=== PATIENT | female | born 1990 | race Caucasian/White ===

== ENCOUNTER 2020-06-02 15:55 | Inpatient (IN) | payer BC, SELFPAY ==
[2020-06-02] VITALS (24 sets, daily range): BP systolic 104–143; BP diastolic 50–88; PULSE 58–89; TEMP 36.8–37.2; O2SAT 99–100; BMI 28.5
[2020-06-02] MEDS: Lactated Ringers 1,000 ML 50 ML IV (15:55)
[2020-06-02] MEDS: Lactated Ringers 500 ML 999 ML IV (15:56)
[2020-06-02 16:21] LABS: ROM Internal Control Test YES-OK TO RESULT pt. (Internal QC); ROM Patient Test POSITIVE (Negative)
[2020-06-02 16:24] LABS: Absolute Lymphocyte Count 1.82 X10^3/uL (0.83-4.51); Absolute Neutrophil Count 5.9 X10^3/uL (2.0-7.7); Basophil# 0.02 X10^3/uL; Basophil% 0.2 % (0-1); Eosinophil# 0.12 X10^3/uL; Eosinophils% 1.4 % (0-5); Hematocrit 31.3 % (37-47); Hemoglobin 10.3 g/dL (12.0-15.0); Lymphocyte # 1.82 X10^3/ul (4.0); Lymphocyte % 21.5 % (19-41); Mean Corp Hgb Conc 32.9 g/dL (32-36); Mean Corpuscular Hgb 27.8 pg (27.0-32.0); Mean Corpuscular Volume 84.4 fL (81-99); Mean Platelet Vol. 11.2 fl (6.2-12.0); Monocyte% 7.1 % (0-10); NRBC Flagged by Analyzer 0 % (0-5); Neutrophil # 5.86 X10^3/uL (2.7-7.7); Neutrophil % 69.2 % (47-70); Platelet Count 253 K/mm3 (150-450); RBC Distribution Width CV 13.7 % (11.6-14.6); Red Blood Count 3.71 M/mm3 (4.2-5.4); White Blood Count 8.5 K/mm3 (4.4-11.0)
[2020-06-02] MEDS: Ondansetron 4 MG/2 ML Vial IV (16:43)
[2020-06-02] MEDS: fentaNYL-bupivacaine (epidural) 100 ML BAG EPIDURAL (17:26)
[2020-06-02] MEDS: Oxytocin 30 units/NS 500 ml 30 UNITS/500 ML IV.SOLN 334 UNITS IV (17:48)
--- NOTE | 2020-06-02 18:43 | PCM.OPRPT ---
Problem List (1) Active labor at term Status: Acute (2) Positive GBS test Status: Acute (3) Spontaneous rupture of amniotic membranes Status: Acute Report of Operation Date of Procedure: 06/02/20 Pre-Operative Diagnosis: Active labor, S.R.O.M clear fluid, term gestation, GBS postive Post-Operative Diagnosis: Same, live female Surgery/Procedure Performed:: Type of Anesthesia:: Epidural Vaginal Delivery Maternal Presentation: Active Labor, Spontaneous Rupture of Membranes Patient is a 29 year old at 40.0 weeks gestation that presents with contractions that started a couple of hours ago that continue to increase in frequency and pain. Stated water broke at 1400 this afternoon. Positive movement, denies any vaginal bleeding. overall uncomplicated. Patient has history of anxiety, Rh negative status and GBS positive. Amniotic Membrane Rupture Type: Spontaneous at home Rupture of Membrane time: 1400 Amniotic Fluid Description: Clear Final VIRIDIANA: 06/02/20 Gestational age: 40 Weeks and 0 Days Date of Procedure: 06/02/20 Pre-Operative Diagnosis: Term gestation, Active labor, S.R.O.M, GBS positive Post-Operative Diagnosis: same, live female Surgery/ Procedure Performed: Spontaneous Vaginal Delivery Type of Anesthesia: Epidural Description of Procedure: Patient quickly progressed to complete dilation soon after arrival to unit. Involuntarily bearing down. Infant head easily delivered DINORA over intact perineum with maternal effort. A loose nuchal cord x1 noted and easily reduced. The remainder of was delivered with minimal maternal pushing and gentle traction only in less than 10 seconds. The was placed on maternal abdomen and delayed cord clamping occurred. The Pitocin infusion was initiated for active management of the third stage. The cord was clamped after 2 minutes and cut by FOB. Infant immediately placed skin to skin with patient. The placenta delivered spontaneously and intact. After inspection it was determined there was a first degree perineal laceration that had achieved hemostasis. A vaginal sweep was completed by me. Sponge and needle counts were correct. Mother and baby bonding well at this time. Presentation: DINORA Placental Delivery Description: Spontaneous Placenta Disposition: [facility] Cord Vessel Description: 3 Vessels Cord Entanglement: Around neck x 1, loose - Cord around body Estimated Blood Loss: 250 Infant A gender: Female (1 minute): 9 (5 minute): 9 Episiotomy Description: None Laceration: 1st degree Medications given after delivery: IV Pitocin
--- NOTE | 2020-06-02 19:11 | PCM.HP.OB ---
- Problem List (1) Active labor at term Status: Acute (2) Positive GBS test Status: Acute (3) Spontaneous rupture of amniotic membranes Status: Acute History Date of Admission: 06/14/17 Final VIRIDIANA: 06/02/20 Final VIRIDIANA Source: [place] <20 weeks Gestational age: 40 Weeks and 0 Days History of this : This is a 29 year-old, G [], P [], at 40 weeks gestational age. Allergies amoxicillin Allergy (Verified 06/02/20 16:04) Rash Home Medications: Home Medications Vit No.130/Iron/Folic [ Tablet] 1 tab PO DAILY 06/14/17 Smoking Status: Never smoker Number of Fetus(es): 1 NST - FHR Rate Baby A Baseline: 120 Variability:: Moderate Accelerations:: 15 x 15 Decelerations:: None NST Reactive:: Yes FHR Category:: Category I Uterine Activity:: TOCO reading every 2-3 minutes. Palpates moderate to strong and relaxed in between History Past Pregnancies: Past Pregnancies Delivery Date Name GA/ Weeks Outcome Route Wt Infant Sex Labor Length Anesthesia Delivery Location Provider FOB Labs: B negative\ 1 hr. GCT- normal Rubella - immune HB- negative HC- negative RPR- NR HIV- NR GC/Ch- negative GBS- positive Expected Infant Delivery Method: Spontaneous Vaginal Review of Systems Constitutional: Denies: Anorexia, Chills, Fever Eyes: Denies: Blurred vision Cardiovascular: Denies: Chest Pain Respiratory: Denies: Cough, Shortness of Breath Gastrointestinal: Denies: Abdominal Pain Neurological: Denies: Blurred vision, Headaches Physical Exam Vitals: Vital Signs Temp Pulse BP Pulse Ox 98.2 F 67 104/60 100 06/02/20 17:16 06/02/20 19:03 06/02/20 19:03 06/02/20 17:37 General: Alert, Oriented x3 Cardiovascular: Regular rate Lungs: Normal air movement Abdomen: Soft, Gravid Neurological: Cranial nerves II-XII grossly intact Assessment/Plan All Active Problems Active labor at term (Acute) Positive GBS test (Acute) Spontaneous rupture of amniotic membranes (Acute) This is a 29 year-old, G [2], P [1], at 40 weeks gestational age in Active labor. A: Active labor, S.R.O.M for clear fluid P: Admit to Labor and Delivery Routine labs IV fluids per protocol Start PCN 5 million units IV for GBS positive status Epidural for pain relief when indicated Anticipate Dr. Sifuentes notified of admission and is collaborating physician
[2020-06-02] MEDS: 0.9% Saline Lock 10 ML Syringe IV (20:12)
[2020-06-03 00:35] VITALS: BP 116/60; PULSE 70; RESP 12; TEMP 36.6
[2020-06-03] MEDS: Acetaminophen 500 MG Tablet 1000 MG PO (00:50)
[2020-06-03 04:25] VITALS: BP 113/65; PULSE 70; RESP 18; TEMP 36.3
[2020-06-03] MEDS: Ibuprofen 600 MG Tablet PO ×2 (06:50→14:19)
[2020-06-03 08:20] VITALS: BP 111/72; PULSE 75; RESP 16; TEMP 36.4
--- NOTE | 2020-06-03 08:47 | PCM.PN.OB ---
Patient Problems: Active and Suspected Problems Active labor at term (Acute) Positive GBS test (Acute) Spontaneous rupture of amniotic membranes (Acute) Subjective: Doing well per patient and nursing staff. Ambulating and taking PO without difficulty. Lochia normal. Pain controlled. Bottle feeding. Planning D/C home tomorrow. - Physical Exam Vitals/I&O's: Vital Signs Temp Pulse Resp BP Pulse Ox 97.6 F L 75 16 111/72 100 06/03/20 08:20 06/03/20 08:20 06/03/20 08:20 06/03/20 08:20 06/02/20 17:37 Oxygen Delivery Method Room Air Weight: 161 lb 6.4 oz Body Mass Index (BMI) 28.5 Intake and Output for Last 24 Hours 06/01/20 06/02/20 06/03/20 23:59 23:59 23:59 Intake Total 1414.56 / 1414.56 Output Total 850 / 850 Balance 564.56 / 564.56 General: Alert, Oriented x3, Cooperative HEENT: Atraumatic, Normocephalic Neck: Trachea Midline Lungs: Clear to auscultation, Normal air movement, No rhonchi, No wheeze Cardiovascular: Regular rate, Regular Rhythm, No murmurs Abdomen: Bowel Sounds Present, Soft Extremities: No edema - Emilie's negative Psych/Mental Status: Normal Affect, Appropriate Laboratory Results 06/02/20 15:50: Vag Amniotic Fld Detect POSITIVE H 06/02/20 15:55: WBC 8.5, RBC 3.71 L, Hgb 10.3 L, Hct 31.3 L, MCV 84.4, MCH 27.8, MCHC 32.9, RDW Std Deviation 42.0, RDW Coeff of Sury 13.7, Plt Count 253, MPV 11.2, Immature Gran % (Auto) 0.600, Neut % (Auto) 69.2, Lymph % (Auto) 21.5, [place] % (Auto) 7.1, Eos % (Auto) 1.4, Baso % (Auto) 0.2, Absolute Neuts (auto) 5.9, Absolute Lymphs (auto) 1.82, Nucleated RBC % 0 06/02/20 15:55: Blood Type B NEGATIVE, Antibody Screen POSITIVE H, Antibody Identification ANTI-D 06/02/20 21:18: Screen NEGATIVE, Baby's Blood Type AB POSITIVE, Baby's MICHELLE POSITIVE Current Medications Acetaminophen (Tylenol) 1,000 mg PO Q8H PRN PRN PRN Reason: Pain Score 1-3/10 Last Admin: 06/03/20 00:50 Dose: 1,000 mg Documented by: Bisacodyl (Dulcolax) 10 mg RECTAL UD PRN PRN Reason: If no BM Dibucaine (Dibucaine) 1 applic TOPICAL TID PRN PRN; Protocol PRN Reason: Discomfort Hydrocortisone (Hytone) 1 applic TOPICAL TID PRN PRN; Protocol PRN Reason: Discomfort Ibuprofen (Motrin) 600 mg PO Q6H PRN PRN PRN Reason: Pain Score 1-3/10 Last Admin: 06/03/20 06:50 Dose: 600 mg Documented by: Methylergonovine Maleate (Methergine) 0.2 mg IM X1 PRN PRN Reason: Excess bleeding/uterine atony Ondansetron HCl (Zofran) 4 mg IV Q4H PRN PRN PRN Reason: Nausea Senna/Docusate Sodium (Senokot-S, Valery-Colace) 1 - 2 tablet PO DAILY PRN PRN PRN Reason: Constipation Simethicone (Mylicon) 80 mg PO PCHS PRN PRN Reason: Indigestion/Stomach pain Sodium Chloride () 5 - 15 ml IV UD PRN PRN Reason: SALINE FLUSH Last Admin: 06/02/20 20:12 Dose: 10 ml Documented by: Medical Necessity - Tobacco Use Smoking Status: Never smoker Assessment/Plan All Active Problems Active labor at term (Acute) Positive GBS test (Acute) Spontaneous rupture of amniotic membranes (Acute) A:PPD #1 P: 1) Normal PP course, routine care 2) Pain management 3) D/C home tomorrow.
[2020-06-03 14:14] VITALS: BP 113/71; PULSE 70; RESP 16; TEMP 36.4
[2020-06-03] MEDS: Senna/Docusate Sodium 1 Tablet PO (14:19)
[2020-06-03 20:47] VITALS: BP 120/76; PULSE 75; RESP 16; TEMP 36.5
[2020-06-04] MEDS: Ibuprofen 600 MG Tablet PO (01:06)
[2020-06-04 02:40] VITALS: BP 124/78; PULSE 67; RESP 16; TEMP 36.6
--- NOTE | 2020-06-04 08:01 | PCM.PN.OB ---
Patient Problems: Active and Suspected Problems Active labor at term (Acute) Positive GBS test (Acute) Spontaneous rupture of amniotic membranes (Acute) Subjective: pt seen at bedside, doing well. pt reports good pain control- mild lochia. bottle feeding. voiding w/o difficulty. - Physical Exam Vitals/I&O's: Vital Signs Temp Pulse Resp BP Pulse Ox 97.8 F 67 16 124/78 H 100 06/04/20 02:40 06/04/20 02:40 06/04/20 02:40 06/04/20 02:40 06/02/20 17:37 Oxygen Delivery Method Room Air Weight: 73.21 kg Body Mass Index (BMI) 28.5 Intake and Output for Last 24 Hours 06/02/20 06/03/20 06/04/20 23:59 23:59 23:59 Intake Total 1414.56 / 1414.56 Output Total 850 / 850 Balance 564.56 / 564.56 General: Alert, Oriented x3 Abdomen: Soft, Non Tender, Non-Distended, - - fundus firm Extremities: No Calf Tenderness Current Medications Acetaminophen (Tylenol) 1,000 mg PO Q8H PRN PRN PRN Reason: Pain Score 1-3/10 Last Admin: 06/03/20 00:50 Dose: 1,000 mg Documented by: Bisacodyl (Dulcolax) 10 mg RECTAL UD PRN PRN Reason: If no BM Dibucaine (Dibucaine) 1 applic TOPICAL TID PRN PRN; Protocol PRN Reason: Discomfort Hydrocortisone (Hytone) 1 applic TOPICAL TID PRN PRN; Protocol PRN Reason: Discomfort Ibuprofen (Motrin) 600 mg PO Q6H PRN PRN PRN Reason: Pain Score 1-3/10 Last Admin: 06/04/20 01:06 Dose: 600 mg Documented by: Methylergonovine Maleate (Methergine) 0.2 mg IM X1 PRN PRN Reason: Excess bleeding/uterine atony Ondansetron HCl (Zofran) 4 mg IV Q4H PRN PRN PRN Reason: Nausea Senna/Docusate Sodium (Senokot-S, Valery-Colace) 1 - 2 tablet PO DAILY PRN PRN PRN Reason: Constipation Last Admin: 06/03/20 14:19 Dose: 2 tablet Documented by: Simethicone (Mylicon) 80 mg PO PCHS PRN PRN Reason: Indigestion/Stomach pain Sodium Chloride () 5 - 15 ml IV UD PRN PRN Reason: SALINE FLUSH Last Admin: 06/02/20 20:12 Dose: 10 ml Documented by: Medical Necessity - Tobacco Use Smoking Status: Never smoker Assessment/Plan All Active Problems Active labor at term (Acute) Positive GBS test (Acute) Spontaneous rupture of amniotic membranes (Acute) PPD#2, doing well routine care pain mgmt dc home
--- NOTE | 2020-06-04 08:04 | DCINST_ITS ---
Discharge Diet: No Restrictions Discharge Activity: Return to Normal Activity, May not drive while taking narcotic pain medications., May Shower May resume sexual activity in: 4-6 weeks Additional Activity Instructions:: Nothing in the vagina for 4-6 weeks. You may return to work/school in 6 weeks. Call your doctor if your incision/area has: Continuous Slow Oozing, Sudden Increased Bleeding, Increased Pain/ Swelling, Increased Redness, Foul Smelling Discharge Additional Instructions: If you experience any of the following, contact your healthcare provider. * Bleeding that soaks a pad every hour for 2 hours * Fever 100.4 or higher * Unrelieved incision or abdominal pain * Swelling, redness, discharge or bleeding from your incision or episiotomy site * Your incision begins to separate * Problems urinating (including inability to urinate or burning while urinating). * Visual changes * Severe headache * Flu-like symptoms * Pain or redness in one of both of your breasts * Pain, warmth, tenderness or swelling in your legs, especially the calf area * Frequent nausea and vomiting * Symptoms of depression or anxiety If you experience any of the following, call 911 or go to the nearest Emergency Room. * Chest pain * Problems breathing * Seizure activity * Partial or complete paralysis of a body part, slurred speech, weakness or drooping of the face, or a sudden inability to walk or hold your balance Allergies/Adverse Reactions: Allergies amoxicillin Allergy (Verified 06/02/20 16:04) Rash Medications to take at Discharge Vit No.130/Iron/Folic [ Tablet] 1 tab PO DAILY 06/14/17 Ibuprofen [Motrin] 600 mg PO Q6H PRN PRN #30 tab 06/04/20 The following prescriptions were given: Ibuprofen [Motrin] 600 mg PO Q6H PRN PRN #30 tab PRN Reason: Pain Score 1-3/10 Transmission Status: Pending to [id number] When: Call to make an appointment with your doctor in 6 weeks. If you had elevated Blood Pressure or 4th degree laceration you will need to be seen in 2 weeks. Primary Care Physician: Jose Sanchez DO [Primary Care Provider] - Test Results: Test results from this visit will be discussed in further detail at your follow- up appointment, if applicable.
[2020-06-04] MEDS: Senna/Docusate Sodium 1 Tablet PO (09:01)
[2020-06-04 09:05] VITALS: BP 116/75; PULSE 88; RESP 16; TEMP 36.6
== END 2020-06-04 10:10 | disposition home or self-care (01) | DRG 807 ==
LOC: WPOUT 16:06 → WP 17:53
PROVIDERS: Admitting Provider Advanced Practice Midwife; PCP Family Medicine; Visit Provider Advanced Practice Midwife
DX: O99.824 Streptococcus B carrier state complicating childbirth (principal); O69.81X0 Labor and delivery complicated by cord around neck, without compression, not applicable or unspecified; Z3A.40 40 weeks gestation of pregnancy; Z37.0 Single live birth
CPT/HCPCS: 59025; 59050; 84112; 85025; 85461; 86850; 86870; 86900; 86901; 90384; 99218; J7120; A4216; G0378; J2405; J2790